=== PATIENT | male | born 1950 | race Caucasian/White ===

== ENCOUNTER → 2017-12-06 | Outpatient (CLI) | payer MEDICARE | LOC: CARDLAB 11-29 08:30 → CARDREHAB 08:50 → CARDLAB 10:19 | DX: I10 Essential (primary) hypertension (principal); E78.5 Hyperlipidemia, unspecified; E78.1 Pure hyperglyceridemia; R06.83 Snoring; Z13.6 Encounter for screening for cardiovascular disorders; Z87.891 Personal history of nicotine dependence; Z82.49 Family history of ischemic heart disease and other diseases of the circulatory system; Z00.00 Encounter for general adult medical examination without abnormal findings | CPT/HCPCS: A9500 ==

== ENCOUNTER → 2019-08-27 | Day surgery (SDC) | payer MEDICARE | END | disposition home or self-care (01) | LOC: MSO 09:10 | DX: C18.7 Malignant neoplasm of sigmoid colon (principal); Z87.891 Personal history of nicotine dependence; E78.1 Pure hyperglyceridemia; M17.10 Unilateral primary osteoarthritis, unspecified knee; R01.1 Cardiac murmur, unspecified; R09.02 Hypoxemia; Z84.1 Family history of disorders of kidney and ureter; Z83.79 Family history of other diseases of the digestive system; R06.83 Snoring | CPT/HCPCS: 00811; J2704; J7120 ==

== ENCOUNTER → 2019-09-03 | Outpatient (CLI) | payer MEDICARE | LOC: RAD 08:52 | DX: K63.89 Other specified diseases of intestine (principal); Z85.038 Personal history of other malignant neoplasm of large intestine | CPT/HCPCS: Q9967 ==

== ENCOUNTER → 2020-10-03 | Outpatient (CLI) | payer MEDICARE | LOC: LAB 07:18 | DX: Z20.828 Contact with and (suspected) exposure to other viral communicable diseases (principal) ==

== ENCOUNTER → 2020-10-06 | Day surgery (SDC) | payer MEDICARE | LOC: MSO 07:11 | DX: Z12.11 Encounter for screening for malignant neoplasm of colon (principal); D12.5 Benign neoplasm of sigmoid colon; D12.0 Benign neoplasm of cecum; D12.8 Benign neoplasm of rectum; I10 Essential (primary) hypertension; Z98.61 Coronary angioplasty status; Z90.49 Acquired absence of other specified parts of digestive tract; Z85.038 Personal history of other malignant neoplasm of large intestine; M19.90 Unspecified osteoarthritis, unspecified site | CPT/HCPCS: 00811; J2704; J3010; J7120 ==

== ENCOUNTER → 2020-12-06 | Outpatient (CLI) | payer MEDICARE | LOC: RAD 08:09 | DX: C18.9 Malignant neoplasm of colon, unspecified (principal); Z98.890 Other specified postprocedural states | CPT/HCPCS: Q9967 ==

== ENCOUNTER 2021-07-10 08:30 | Emergency (ER) | payer MEDICARE ==
[2021-07-10] MEDS ORDERED: BENAZEPRIL HCL20 MG PO (09:34)
[2021-07-10 10:02] LABS: HEMATOCRIT 55.3 % (42.0-52.0); HEMOGLOBIN 19.1 g/dL (13.5-18.0); MEAN CELL VOLUME 94 fl (78-100); MEAN CORPUSCULAR HEMOGLOBIN 32 pg (27-31); MEAN CORPUSCULAR HGB CONC 35 g/dL (33-37); MEAN PLATELET VOLUME 9.5 fl (7.4-10.4); PLATELET COUNT 189 K/mm3 (130-400); RED BLOOD COUNT 5.91 M/mm3 (4.20-5.60); RED CELL DISTRIBUTION WIDTH 13.3 % (11.5-14.5)
[2021-07-10 10:08] LABS: WHITE BLOOD COUNT 25.9 K/mm3 (4.8-10.8)
[2021-07-10 10:10] LABS: ALBUMIN 3.5 g/dL (3.4-4.8); POTASSIUM 4.4 mmol/L (3.5-5.1)
[2021-07-10 10:12] LABS: BAND 8 % (0-10); LYMPHOCYTE 0 % (20-51); MONOCYTE 10 % (3-10); NEUTROPHILS 82 % (42-75); TOTAL PROTEIN 6.6 g/dL (6.2-8.1)
[2021-07-10 10:14] LABS: TOTAL BILIRUBIN 1.7 mg/dL (0.2-1.2)
[2021-07-10 14:25] VITALS: BP 139/93
== END 2021-07-10 13:45 | disposition short-term general hospital (02) ==
LOC: ED 08:30
PROVIDERS: Nurse Practitioner
DX: K85.90 Acute pancreatitis without necrosis or infection, unspecified (principal); I10 Essential (primary) hypertension; Z85.038 Personal history of other malignant neoplasm of large intestine; Z79.899 Other long term (current) drug therapy
CPT/HCPCS: J1885; J2270; J2543; J7030; Q9967

== ENCOUNTER → 2021-09-01 | Outpatient (CLI) | payer MEDICARE ==
[~2021-09-01] MED LIST: BENAZEPRIL HCL20 MG PO
== END ==
LOC: RAD 11:07
DX: M25.512 Pain in left shoulder (principal)

== ENCOUNTER → 2021-11-02 | Outpatient (CLI) | payer MEDICARE | LOC: RAD 15:58 | DX: M75.102 Unspecified rotator cuff tear or rupture of left shoulder, not specified as traumatic (principal); M75.52 Bursitis of left shoulder ==

== ENCOUNTER → 2021-12-11 | Outpatient (CLI) | payer MEDICARE | LOC: RAD 09:47 | DX: C18.9 Malignant neoplasm of colon, unspecified (principal); Z98.890 Other specified postprocedural states | CPT/HCPCS: Q9967 ==

== ENCOUNTER → 2021-12-26 | Outpatient (CLI) | payer MEDICARE | LOC: VAS 14:59 → RAD 15:00 | DX: I48.0 Paroxysmal atrial fibrillation (principal) ==

== ENCOUNTER → 2022-01-26 | Outpatient (CLI) | payer MEDICARE | LOC: CARDREHAB 07:47 | DX: I48.0 Paroxysmal atrial fibrillation (principal) | CPT/HCPCS: A9500 ==

== ENCOUNTER → 2024-06-02 | Outpatient (CLI) | payer MEDICARE ==
[~2024-06-02] MED LIST changes: +Iohexol 300 - 100 ML VIAL IV ONE
== END ==
LOC: RAD 09:52
DX: C18.7 Malignant neoplasm of sigmoid colon (principal); Z98.890 Other specified postprocedural states
CPT/HCPCS: Q9967

== ENCOUNTER → 2024-12-03 | Outpatient (CLI) | payer MEDICARE ==
[~2024-12-03] MED LIST changes: +NS 100 ML IV ONE
== END ==
LOC: RAD 08:44
DX: K63.89 Other specified diseases of intestine (principal); Z90.49 Acquired absence of other specified parts of digestive tract; Z85.038 Personal history of other malignant neoplasm of large intestine
CPT/HCPCS: Q9967